=== PATIENT | female | born 1985 | race Caucasian/White ===

== ENCOUNTER 2019-04-19 11:15 | Inpatient (IN) | payer MEDICAID ==
[~2019-04-19] VITALS: Ht 160 cm; Wt 86.2 kg
[2019-06-27] MEDS ORDERED: ALBU8.5H8 IH (11:14)
[2019-06-27] MEDS ORDERED: BACL10TA PO (11:14)
[2019-06-27] MEDS ORDERED: FLUT16SP2 BOTHNARES (11:14)
[2019-06-27 11:30] LABS: BASOPHILS # (AUTO) 0.1 X10'3 (0-0.2); BASOPHILS % (AUTO) 0.6 % (0-1); EOSINOPHILS # (AUTO) 0.1 X10'3 (0-0.9); EOSINOPHILS % (AUTO) 0.8 % (0-6); LYMPHOCYTES # (AUTO) 2.5 X10'3 (1.1-4.8); LYMPHOCYTES % (AUTO) 26.9 % (21-51); MEAN CORPUSCULAR HEMOGLOBIN 31.9 PG (27.0-31.0); MEAN CORPUSCULAR HGB CONC 34.5 g/dL (33.0-36.5); MEAN CORPUSCULAR VOLUME 92.4 FL (78-98); MEAN PLATELET VOLUME 7.7 FL (7.4-10.4); MONOCYTES # (AUTO) 0.6 X10'3 (0-0.9); MONOCYTES % (AUTO) 6.2 % (2-12); NEUTROPHILS % (AUTO) 65.5 % (42-75); PRE OP HEMATOCRIT 39.9 % (35.0-45.0); PRE OP HEMOGLOBIN 13.8 g/dL (12.0-16.0); PRE OP PLATELET COUNT 312 X10'3 (140-440); RED BLOOD COUNT 4.31 X10'6 (4.20-5.60); RED CELL DISTRIBUTION WIDTH 12.9 % (11.5-14.5)
[2019-06-27 11:48] LABS: ALBUMIN 3.8 G/DL (3.4-5.0); ALBUMIN/GLOBULIN RATIO 1.2 (1.1-1.5); ALKALINE PHOSPHATASE 65 IU/L (46-116); BLOOD UREA NITROGEN 11 MG/DL (7-18); BUN/CREATININE RATIO 14.3 (6.6-38.0); CALCIUM 8.8 MG/DL (8.5-10.1); CHLORIDE 109 MMOL/L (99-107); CREATININE 0.77 MG/DL (0.40-0.90); PRE OP ALT 18 U/L (30-65); PRE OP ANION GAP 5 (8-16); PRE OP AST 13 U/L (10-37); PRE OP BILIRUB, TOTAL 0.2 MG/DL (0.0-1.0); PRE OP GLUCOSE 78 MG/DL (70-104); PRE OP POTASSIUM 4.1 MMOL/L (3.4-5.1); PRE OP SODIUM 142 MMOL/L (135-145); TOTAL CARBON DIOXIDE 27.8 MMOL/L (24-32); TOTAL PROTEIN 7.1 G/DL (6.4-8.2); eGFR 86 ML/MIN
[2019-06-27 12:14] LABS: HCG SERUM QL NEGATIVE
[2019-06-27] MEDS ORDERED: cefazolin/dext.iso 2gm/100ml 100 ML IV ONE (15:25)
[2019-06-28] MEDS ORDERED: ringers solution, lacted 1,000 ML IV SCH ×2 (05:00→11:18)
[2019-06-28] MEDS ORDERED: vancomycin inj 1,500 MG in normal saline 300ml IV soln IV ONE (05:30)
[2019-06-28] MEDS ORDERED: famotidine 10mg tablet PO ONE (05:30)
[2019-06-28 10:00] VITALS: BP 102/63
[2019-06-28] MEDS ORDERED: BUPIVAcaine/PF 2.5 mg/ml (0.25%) 30ml vial ONE (10:22)
[2019-06-28] MEDS ORDERED: methylPREDNISolone sod succ 125mg/2ml vial ONE (10:22)
[2019-06-28] MEDS ORDERED: hydrALAZINE 20mg/ml inj. IV PRN (11:20)
[2019-06-28] MEDS ORDERED: morphine 4 MG/ML inj SYRINge IV PRN ×2 (11:20)
[2019-06-28] MEDS ORDERED: fentaNYL/PF 50MCG/1 ML 2ML syringe IV PRN ×2 (11:20)
[2019-06-28] MEDS ORDERED: labetalol 20mg/4ml (5mg/ml) syringe IV PRN (11:20)
[2019-06-28] MEDS ORDERED: ondansetron/PF 4mg/2ml inj IV PRN (11:20)
[2019-06-28] MEDS ORDERED: LIDOcaine 0.5% (5mg/ml) 50ml vial ONE (11:50)
[2019-06-28] MEDS ORDERED: MIDAZolam 5mg/5ml vial ONE (12:03)
[2019-06-28] MEDS ORDERED: fentaNYL/PF 50MCG/1 ML 2ML syringe ONE ×2 (12:03)
[2019-06-28] MEDS ORDERED: LIDOcaine 2% (20mg/ml) 5ml vial ONE ×3 (12:05→12:06)
[2019-06-28] MEDS ORDERED: propofol inj 20 ML IV ONE (12:06)
[2019-06-28] MEDS ORDERED: ketorolac trometh. 30mg/ml inj. ONE (12:06)
[2019-06-28 12:40] VITALS: BP 119/62
--- NOTE | 2019-06-28 12:40 | NUR ---
Received from OR via BED, accompanied by Anesthesiologist DR OZUNA and report given by Anesthesiolgist. PATIENT A&OX4, DENIES PAIN, V/S WNL, NEUROVASCULAR CHECKS INTACT, 20G PIV LUE, SCD ON, DRESSING TO RIGHT WRIST CDI ELEVATED WITH ICEBAG APPLIED.
[2019-06-28 12:50] VITALS: BP 101/69
[2019-06-28 13:00] VITALS: BP 111/65
[2019-06-28 13:10] VITALS: BP 107/69
[2019-06-28 13:20] VITALS: BP 109/71
--- NOTE | 2019-06-28 13:20 | NUR ---
PATIENT A&OX4, DENIES PAIN, V/S WNL, NEUROVASCULAR CHECKS INTACT, 20G PIV LUE D/C, SCD OFF, DRESSING TO RIGHT WRIST CDI ELEVATED WITH ICEBAG APPLIED. I HAVE REVIEWED D/C INSTRUCTIONS WITH PATIENT AND FAMILY AND THEY HAVE VERBALIZED UNDERSTANDING. PATIENT D/C HOME WITH ALL BELONGINGS AND FAMILY GAVE TRANSPORT HOME.
== END 2019-06-28 13:20 | disposition home or self-care (01) | DRG 26 ==
LOC: PAS IN 06-28 09:48 → EDSTATUS 06-28 11:00
PROVIDERS: ADMIT Orthopaedic Surgery; ATTEND Orthopaedic Surgery
PROC: 01N40ZZ Release Ulnar Nerve, Open Approach (ICD-10-PCS; 2019-06-28)
PROC: 01N50ZZ Release Median Nerve, Open Approach (ICD-10-PCS; principal; 2019-06-28 11:55)
DX: G56.03 Carpal tunnel syndrome, bilateral upper limbs (principal); E66.8 Other obesity; F17.208 Nicotine dependence, unspecified, with other nicotine-induced disorders; J44.9 Chronic obstructive pulmonary disease, unspecified; Z88.8 Allergy status to other drugs, medicaments and biological substances; Z68.33 Body mass index [BMI] 33.0-33.9, adult
CPT/HCPCS: 36415; 80053; 82948; 84703; 85025; A4215; A4618; A6222; A6449; A7000; J1885; J2001; J2250; J2704; J2930; J3010; J3370; J3490; J7120